=== PATIENT | male | born 1990 | race Caucasian/White ===

== ENCOUNTER 2019-05-05 06:35 | Emergency (ER) | payer BC, OTHER ==
[2019-05-05 07:18] VITALS: BP 119/74; PULSE 61; TEMP 98.2; BMI 24.7
--- NOTE | 2019-05-05 07:49 | PDOC ---
*Physical Exam - Vital Signs Last Vital Signs Temp Pulse Resp BP Pulse Ox 98.2 F 61 19 119/74 97 05/05/19 07:17 05/05/19 07:17 05/05/19 07:17 05/05/19 07:17 05/05/19 07:17 Medical Decision Making - Medical Decision Making 05/05/19 07:48 29y M presents sp insect bite on L knee and possible chest. Endorses slight pain. Denies any itching impression - noninfected bug bite supportive care The patient was seen and evaluated in conjunction with LUISA Giordano under my direct supervision, ancillary studies were reviewed. I agree with the plan as outlined by LUISA Giordano . *DC/Admit/Observation/Transfer Diagnosis at time of Disposition: Bee sting - Discharge Dispostion Disposition: HOME Condition at time of disposition: Stable - Referrals - Patient Instructions Printed Discharge Instructions: DI for Insect Bites and Stings Additional Instructions: Thank you for choosing [facility]. It was a pleasure taking care of you. Apply ice over site of redness You may take Motrin 600 mg every 6 hours if needed for pain. Take with food Follow-up with your doctor in 2-3 days Return to the Emergency Department if your symptoms worsen or persist, you have fever, swelling, redness, streaking, open wound with purulent drainage or other concerning symptoms. - Post Discharge Activity
--- NOTE | 2019-05-05 07:58 | PDOC ---
History of Present Illness - General Chief Complaint: Bite Stated Complaint: BEE STING AT WORK Time Seen by Provider: 05/05/19 07:18 History Source: Patient Exam Limitations: No Limitations Past History - Past Medical History Allergies/Adverse Reactions: Allergies Allergy/AdvReac Type Severity Reaction Status Date / Time Sulfa (Sulfonamide Allergy Verified 05/05/19 07:18 Antibiotics) COPD: No - Immunization History Immunization Up to Date: Yes - Suicide/Smoking/Psychosocial Hx Smoking History: Never smoked Information on smoking cessation initiated: No Hx Alcohol Use: No Drug/Substance Use Hx: No *Physical Exam - Vital Signs Last Vital Signs Temp Pulse Resp BP Pulse Ox 98.2 F 61 19 119/74 97 05/05/19 07:17 05/05/19 07:17 05/05/19 07:17 05/05/19 07:05/05/19 07:17 - Physical Exam General Appearance: No: Apparent Distress Respiratory/Chest: positive: Lungs Clear, Normal Breath Sounds. negative: Respiratory Distress Cardiovascular: positive: Regular Rhythm, Regular Rate, S1, S2. negative: Murmur Gastrointestinal/Abdominal: positive: Soft. 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 Mentions mostly feels a bit of knee along medial aspect of L knee; also mentions possibly stung on chest and above R ankle , but that is not bothering him now. Denies fever, sob, cp, abd pain, n/v Site appears unremarkable with no open cuts/wounds/rashes/lesions noted stable for dc 05/05/19 07:54 *DC/Admit/Observation/Transfer Diagnosis at time of Disposition: Bee sting Qualifiers: Encounter type: initial encounter Injury intent: accidental or unintentional Qualified Code(s): T63.441A - Toxic effect of venom of bees, accidental ( unintentional), initial encounter - Discharge Dispostion Disposition: HOME Condition at time of disposition: Stable Decision to Admit order: No - Referrals - Patient Instructions Printed Discharge Instructions: DI for Insect Bites and Stings Additional Instructions: Thank you for choosing [facility]. It was a pleasure taking care of you. Apply ice over site of redness You may take Motrin 600 mg every 6 hours if needed for pain. Take with food Follow-up with your doctor in 2-3 days Return to the Emergency Department if your symptoms worsen or persist, you have fever, swelling, redness, streaking, open wound with purulent drainage or other concerning symptoms. - Post Discharge Activity
== END 2019-05-05 08:54 | disposition home or self-care (01) ==
LOC: JER 06:35
DX: T63.441A Toxic effect of venom of bees, accidental (unintentional), initial encounter (principal); L53.0 Toxic erythema; Y92.89 Other specified places as the place of occurrence of the external cause; Y93.H9 Activity, other involving exterior property and land maintenance, building and construction; Y99.0 Civilian activity done for income or pay
CPT/HCPCS: 99281-25

== ENCOUNTER 2020-12-26 22:08 | Emergency (ER) | payer BC, OTHER ==
[2020-12-26 22:11] VITALS: BMI 25.0
[2020-12-26 22:15] VITALS: BP 135/84; PULSE 65; TEMP 97.4
== END 2020-12-26 22:52 | disposition home or self-care (01) ==
LOC: FER 22:08
DX: S00.81XA Abrasion of other part of head, initial encounter (principal); S01.512A Laceration without foreign body of oral cavity, initial encounter
CPT/HCPCS: 99283-25

== ENCOUNTER 2022-11-05 09:15 | Emergency (ER) | payer OTHER ==
[2022-11-05 09:41] VITALS: BP 135/75; PULSE 60; RESP 18; TEMP 98.6; BMI 23.6
[2022-11-05] MEDS ORDERED: KETOROLAC TROMETHAMINE 30 MG/1 ML VIAL IM ONE (10:36)
[2022-11-05] MEDS ORDERED: KETOROLAC TROMETHAMINE 30 MG/1 ML VIAL ONE (10:43)
== END 2022-11-05 10:52 | disposition home or self-care (01) ==
LOC: JERFT 09:15 → JER 09:15 → JERFT 10:52
PROC: 3E0233Z Introduction of Anti-inflammatory into Muscle, Percutaneous Approach (ICD-10-PCS; principal; 2022-11-05)
DX: S46.911A Strain of unspecified muscle, fascia and tendon at shoulder and upper arm level, right arm, initial encounter (principal); T59.811A Toxic effect of smoke, accidental (unintentional), initial encounter; J70.5 Respiratory conditions due to smoke inhalation; X08.8XXA Exposure to other specified smoke, fire and flames, initial encounter; Y93.I9 Activity, other involving external motion; Y99.0 Civilian activity done for income or pay
CPT/HCPCS: 99284-25

== ENCOUNTER 2025-04-01 06:26 | Emergency (ER) | payer OTHER ==
[2025-04-01 06:31] VITALS: BP 120/83; PULSE 57; RESP 18; TEMP 97.7; BMI 24.3
== END 2025-04-01 07:30 | disposition home or self-care (01) ==
LOC: JER 06:26
DX: M62.838 Other muscle spasm (principal); X50.1XXA Overexertion from prolonged static or awkward postures, initial encounter; Y99.0 Civilian activity done for income or pay
CPT/HCPCS: 73030-TC-RT-FY; 87637-QW; 99284-25